=== PATIENT | female | born 1950 | race Caucasian/White ===

== ENCOUNTER 2017-05-09 08:13 | Observation (INO) ==
--- NOTE | 2017-05-09 08:53 | EKG Report ---
Test Performed on : 05/09/2017 08:22:47 AM Test Reason : stroke-like symptoms Blood Pressure : / mmHG Vent. Rate : 092 BPM Atrial Rate : 092 BPM P-R Int : 206 ms QRS Dur : 072 ms QT Int : 370 ms P-R-T Axes : 022 -05 051 degrees QTc Int : 457 ms Normal sinus rhythm. Low voltage QRS Borderline ECG When compared with ECG of 27-MAR-2014 11:57, Questionable change in QRS axis Unconfirmed Result
[2017-05-09 09:01] LABS: MANUAL DIFF NEEDED? NO
--- NOTE | 2017-05-09 09:09 | Diag Imaging Result Doc PS360 ---
CHEST-PORTABLE - 05/09/2017 INDICATION: stroke like symptoms TECHNIQUE: COMPARISON: None FINDINGS: There is some trace linear atelectasis at the left lung base. No focal infiltrates, pneumothorax, or pleural effusion. Heart size and pulmonary vascularity is normal. IMPRESSION: No acute disease. Electronically signed by Fermin Gaines 05/09/2017 9:07 AM
[2017-05-09 09:11] LABS: BASO% 0.6 % (0.0-0.8); EOS# 0.14 X1000 (0.0-0.7); EOS% 2.2 % (0.0-10.0); HEMATOCRIT 40.4 % (37.0-47.0); HEMOGLOBIN 13.8 g/dL (12.0-16.0); IMM GRAN# 0.02 X1000 (0.0-0.04); IMM GRAN% 0.3 % (0.0-0.5); LYMPH# 1.88 X1000 (1.2-3.4); MCH 31.2 PG (27-31); MCHC 34.2 g/dL (33-37); MCV 91.2 FL (81-99); MONO# 0.71 X1000 (0.11-0.59); MPV 9.6 FL (7.4-10.4); NEUT% 56.9 % (42.2-75.2); PLT 239 X1000 (130-400); RBC 4.43 XMIL (4.2-5.4)
[2017-05-09 09:18] LABS: INR 1.08; PROTIME 11.4 Seconds (9.2-11.7); PTT 31.6 Seconds (22.0-36.0)
[2017-05-09] MEDS ORDERED: ATIVAN IV ONE (09:25)
[2017-05-09 09:27] LABS: AGAP 13; ALBUMIN 3.7 g/dL (3.5-5.0); ALKALINE PHOSPHATASE 151 U/L (32-104); BUN 22 mg/dL (8-22); CALCIUM 9.2 mg/dL (8.8-10.2); CHLORIDE 95 mmol/L (98-107); COSMO 292; GOT 16 U/L (10-30); GPT 23 U/L (10-36); POTASSIUM 4.2 mmol/L (3.5-5.1); SODIUM 136 mmol/L (136-145); TCO2 28 mmol/L (25-35); TOTAL BILIRUBIN 0.68 mg/dL (0.20-1.00); TOTAL PROTEIN 6.8 g/dL (6.3-8.3)
[2017-05-09 09:47] LABS: URINE SOURCE CLEAN CATCH
--- NOTE | 2017-05-09 09:53 | Diag Imaging Result Doc PS360 ---
EXAM: CT HEAD W/O CONTRAST HISTORY: words got garbled TECHNIQUE: CT brain without contrast. Dose reduction protocol. COMPARISON: None. FINDINGS: No parenchymal hemorrhage. No epidural or subdural hematoma. No subarachnoid hemorrhage. No mass identified on this noncontrasted exam. No hydrocephalus. Mild chronic microvascular ischemic changes. No sinus opacification. IMPRESSION: No hemorrhage. Mild chronic microvascular ischemic changes. An MRI may be beneficial. Electronically signed by Cornelius Decker 05/09/2017 9:51 AM
[2017-05-09] MEDS ORDERED: NS 1,000 ML IV ONE (09:55)
[2017-05-09 10:25] LABS: UR AMPHETAMINES QUAL NONE DETECTED (NONE DETECT); UR BARBITUATES QUAL NONE DETECTED (NONE DETECT); UR BENZODIAZEPIN QUAL NONE DETECTED (NONE DETECT); UR CANNABINOIDS QUAL NONE DETECTED (NONE DETECT); UR COCAINE QUAL NONE DETECTED (NONE DETECT); UR METHADONE QUAL NONE DETECTED (NONE DETECT); UR OPIATES QUAL NONE DETECTED (NONE DETECT); UR OXYCODONE QUAL NONE DETECTED (NONE DETECT); UR PCP QUAL NONE DETECTED (NONE DETECT)
--- NOTE | 2017-05-09 11:23 | Diag Imaging Result Doc PS360 ---
EXAM: MRI BRAIN W W/O CONTRAST HISTORY: stroke like symptoms TECHNIQUE: Axial, sagittal, and coronal images obtained in multiple sequences. These are followed the post contrasted axial and coronal images. COMPARISON: Recent head CT FINDINGS: No recent infarct. There are small areas of increased signal on T2 and FLAIR weighted images in the frontal and parietal lobes believed to be mild microvascular ischemic changes. No mass or midline shift. No enhancing lesion on the post contrasted images. No hydrocephalus. Normal orbits. No epidural or subdural fluid collection. No sinus opacification. IMPRESSION: Mild microvascular ischemic changes, but no recent infarct. Electronically signed by Cornelius Decker 05/09/2017 11:20 AM
[2017-05-09 11:28] LABS: BILIRUBIN URINE NEGATIVE (NEGATIVE); BLOOD URINE NEGATIVE (NEGATIVE); COLOR YELLOW; GLUCOSE URINE >1000 mg/dL (NEGATIVE); LEUKOCYTES URINE LARGE (NEGATIVE); NITRITE URINE NEGATIVE (NEGATIVE); PH URINE 6.5; PROTEIN URINE TRACE mg/dL (NEGATIVE); SP GRAVITY URINE 1.031; TURBIDITY URINE HAZY (CLEAR); UROBILINOGEN URINE NORMAL (NORMAL)
[2017-05-09 11:36] LABS: URINE MICRO REVIEW NEEDED? YES
[2017-05-09 11:52] LABS: UR EPITHELIAL CELLS <10 /HPF (<10); URINE BACTERIA 2+ /HPF; URINE CULTURE NEEDED? YES; URINE RBC <10 /HPF (<10); URINE WBC TNTC /HPF (<10)
[2017-05-09 11:53] LABS: URINE CASTS NONE SEEN; URINE CRYSTALS NONE SEEN; URINE SMALL ROUND CELLS NONE SEEN
[2017-05-09] MEDS: HUMALOG SUBQ SCH ×9 (14:50→21:39)
[2017-05-09] MEDS: LEVAQUIN PO SCH (15:25)
[2017-05-09] MEDS: NS 1,000 ML IV SCH ×2 (15:35→15:40)
--- NOTE | 2017-05-09 15:35 | HISTORY AND PHYSICAL ---
PRIMARY CARE PHYSICIAN: Dr. Al Beck. CHIEF COMPLAINT: Dysphagia and weakness. HISTORY OF PRESENT ILLNESS: Ms. Alvarado is a 66-year-old female with a history of uncontrolled diabetes mellitus, hypertension, previous strokes in the past, who presents with dysphagia and confusion that initially began on Tuesday. She reports that she had a Tdap shot on Tuesday, Tuesday she was in bed all day with chills and general malaise. Symptoms continued into Tuesday. However, this morning she woke up and she had expressive aphasia and mild confusion as reported by her family. She came to the ER for evaluation and had a head CT done. This did not show anything acute microvascular changes were noted. Her only significant lab data was hyperglycemia. We did order an MRI which was negative for any acute processes. Her symptoms have since resolved. She has no extremity weakness. She has not had any loss of consciousness or visual changes. No numbness or tingling. She denies any chest pain or shortness of breath. No nausea, vomiting or diarrhea. She is now going to be admitted for observation status. PAST MEDICAL HISTORY: 1. Diabetes mellitus, compliant with her medications, but she does not check her blood sugar. 2. Strokes in the past. She did have some mild right visual defects, but those have since resolved. 3. Hypertension. 4. Hyperlipidemia. 5. Anxiety. SURGICAL HISTORY: Tubal ligation. Hysterectomy. Kyphoplasty. SOCIAL HISTORY: She denies tobacco, alcohol or drug use. She is . Family is at the bedside. FAMILY HISTORY: Father from the complications from leukemia. Mother had heart attack. REVIEW OF SYSTEMS: Fourteen-point review of systems obtained and found to be negative with the exception of the HPI. ALLERGIES: Cefuroxime. Lisinopril. Phenazopyridine. Latex. Bactrim. Shellfish. Erythromycin. HOME MEDICATIONS: Hyzaar 100/12.5 one daily. Humalog insulin 15 units subcutaneous t.i.d. Lantus 45 units subcutaneous a.m. Aspirin 325 mg daily. PHYSICAL EXAMINATION: VITAL SIGNS: Blood pressure is 141/82, heart rate 76. Respiratory rate is 20. O2 saturation 99% on room air. Temperature is 97.9 degrees. GENERAL: This is an overweight, female, lying in hospital bed in no acute distress. NEUROLOGIC: The patient is awake, alert and oriented. She follows commands without focal deficits. HEENT: Head is atraumatic, normocephalic. Her pupils are equal, round, and reactive to light. Oral mucosa is moist. Trachea is midline. There is no JVD or carotid bruits. CHEST: Clear to auscultation bilaterally. CARDIOVASCULAR: Regular rate and rhythm. S1-S2 is noted. No murmurs. GI: Soft, nondistended, nontender. Bowel sounds positive. EXTREMITIES: No edema, clubbing or cyanosis. Pulses palpable bilaterally. DIAGNOSTIC DATA: Head CT: Chronic changes. MRI of the brain: Chronic changes. Nothing acute. Chest x-ray is negative. EKG: Sinus rhythm with nonspecific ST and T abnormalities. LABORATORY DATA: WBC 6.48, hemoglobin 13.8, hematocrit 40.4, platelet count 239 ,000. INR 1.08. Sodium 136, potassium 4.2, chloride 95, CO2 28, anion gap 13, BUN 22, creatinine 0.7, glucose is 392, calcium 9.2, T bilirubin 0.68. AST 16, ALT 23, alkaline phosphatase 151, troponin negative. Albumin 3.7. UA shows greater than 1000 glucose, and likely urinary tract infection. Toxicology is negative. ASSESSMENT AND PLAN: 1. Expressive aphasia/stroke-like symptoms: Symptoms have resolved so transient ischemic attack likely. However, would not rule out adverse effects of a Tdap shot given Tuesday; however, unlikely. I will admit her for observation status. Do neurologic checks every 4 hours. Make sure she is on aspirin and statin, allow for permissive hypertension and treat underlying urinary tract infection. 2. Urinary tract infection: By mouth Levaquin has been added. 3. Hyperglycemia with uncontrolled diabetes: Patient reports taking her insulin as directed, but denies checking her blood sugar regularly. We have instructed her on the importance of strict glucose control, as well as diet and exercise. 4. Hypertension: We are holding her Hyzaar for now. We will start back tomorrow morning. 5. Hyperlipidemia: Lipid panel and hemoglobin A1c have been ordered for the morning. We will make sure she is on high intensity statin. 6. Medical noncompliance: We have discussed with the patient the importance of complying with her medication regimen, diet and exercise, she verbalizes understanding. 7. Deep venous thrombosis prophylaxis is provided with Lovenox. Further recommendations to follow. Dictated by ADAN Olmos for Topher Bueno MD cc: ADAN Olmos MD Stephen A. Branning, MD MTDD
--- NOTE | 2017-05-09 17:16 | ECHO REPORT ---
ORDER DATE: 05/09/2017 ECHOCARDIOGRAPHIC MEASUREMENTS: 1. Interventricular septum 0.8. Left ventricular posterior wall 0.8. Diastolic diameter 5.0. Left atrium 3.7. Aorta 3.1. Normal left ventricular cavity size. Estimated ejection fraction of 60%. Technically suboptimal study. Poor acoustic window. Mitral valve was normal. Tricuspid valve was normal. Aortic valve leaflets trileaflet. 2. There is mild mitral regurgitation. Mild tricuspid regurgitation. Peak velocity across the tricuspid valve was 2.8 m/sec. Pulmonary artery systolic pressure 41 mmHg. 3. There is no aortic stenosis or regurgitation. 4. Anterior echo-free space suggestive of pericardial fat pad noted. There is no pericardial effusion. cc: MD Harry Rivera CRNP
[2017-05-09] MEDS ORDERED: LIPITOR PO SCH (21:00)
[2017-05-10] MEDS: NS 1,000 ML IV SCH (04:30)
[2017-05-10] MEDS: HUMALOG SUBQ SCH (06:18)
[2017-05-10 06:52] LABS: HEMATOCRIT 35.6 % (37.0-47.0); HEMOGLOBIN 12.1 g/dL (12.0-16.0); MCH 31.7 PG (27-31); MCV 93.2 FL (81-99); MPV 9.6 FL (7.4-10.4); RBC 3.82 XMIL (4.2-5.4)
[2017-05-10 07:07] LABS: HEMOGLOBIN A1C 12.2 % (4.8-6.0)
[2017-05-10 07:18] LABS: AGAP 12; BUN 18 mg/dL (8-22); CALCIUM 8.4 mg/dL (8.8-10.2); CHLORIDE 101 mmol/L (98-107); COSMO 293; MAGNESIUM 1.8 mg/dL (1.5-2.7); POTASSIUM 4.3 mmol/L (3.5-5.1); SODIUM 140 mmol/L (136-145); TCO2 27 mmol/L (25-35)
[2017-05-10 08:17] VITALS: BP 130/76
[2017-05-10] MEDS ORDERED: LANTUS SUBQ SCH ×2 (09:00)
[2017-05-10] MEDS ORDERED: ASPIRIN EC PO SCH (09:00)
[2017-05-10] MEDS ORDERED: LOVENOX SUBQ SCH (09:00)
[2017-05-10] MEDS: LEVAQUIN PO SCH (09:13)
[2017-05-10] MEDS ORDERED: INSULIN PEN NEEDLES ONE (09:21)
--- NOTE | 2017-05-10 17:12 | DISCHARGE SUMMARY ---
ADMISSION DATE: 05/09/2017 DISCHARGE DATE: 05/10/2017 CONSULTATIONS: None. PERTINENT PROCEDURES: 1. Head CT showed no hemorrhage, mild chronic microvascular ischemic changes. 2. Brain MRI showed mild microvascular ischemic changes, but no recent infarct. 3. Echocardiogram showed an EF of 60%. 4. Chest x-ray showed no acute disease. DISCHARGE DIAGNOSES: 1. Expressive aphasia, stroke-like symptoms. Her symptoms have completely resolved. Head CT, brain MRI, and echo are all negative. Patient will continue with aspirin and statin, and educated on medical compliance. 2. Urinary tract infection. Patient will continue on p.o. Levaquin. 3. Hypercholesterolemia with uncontrolled diabetes. The patient reported taking her insulin as directed, but denies checking her blood sugars regularly. She has been again educated on the importance of strict blood glucose control as well as diet and exercise. 4. Hypertension. Continue with home medications. 5. Hyperlipidemia. Continue statin. 6. Medical noncompliance. Again, patient is educated on the importance of complying with her medication regimen, diet and exercise. HOSPITAL COURSE: Ms. Alvarado is a 66-year-old female, with history of uncontrolled diabetes mellitus, hypertension, and previous strokes in the past, who presented with dysphagia and confusion that initially began on Tuesday. She reports she had a Tdap shot on Tuesday and Tuesday she was in bed all day with chills and general malaise. Symptoms continued Tuesday; however, on Tuesday morning she woke up and had excess expressive aphasia and mild confusion reported by family. She came to the ED for evaluation. Had a head CT done that did not show anything acute. Mild microvascular changes were noted. Her early significant laboratory data was hyperglycemia. MRI was noted to be negative for any acute process. Her symptoms had since resolved. She had no extremity weakness, no loss consciousness or visual changes. No numbness or tingling. Her urinalysis had too numerous to count WBCs. The patient was admitted in observation status with neuro checks. Started on aspirin and statin, and allowed for permissive hypertension. Treated her underlying UTI with Levaquin. Educated her on taking her insulin as directed and checking her blood sugars regularly as well as importance of strict diet and exercise, and medical compliance with all medications. The patient has remained stable. Head CT and brain MRI were both negative. Echocardiogram was negative. She is being discharged home by Dr. Rosas today. VITAL SIGNS: Temperature is 97.6 degrees, heart rate 78, respirations 19, blood pressure 130/76, O2 is 99% on room air. DISCHARGE DIET: Diabetic. DISCHARGE MEDICATIONS: 1. Aspirin 325 mg p.o. daily. 2. Atorvastatin 40 mg p.o. at bedtime. 3. Lantus 60 units subcutaneous q.a.m. 4. Humalog 15 units subcutaneously t.i.d. 5. Levaquin 500 mg p.o. daily for 5 days. 6. Hyzaar 100/12.5, 1 each p.o. at bedtime. FOLLOWUP: Ms. Alvarado is being discharged back home. She will follow up with her primary care physician, Al Beck, in 1 week. She will return to the ED for any worsening of symptoms. Again she has been educated on the importance of medical compliance. She indicates verbal understanding. She will return to the ED for any worsening of symptoms. Dictated by ADAN Phillips for Topher Bueno MD cc: Al Beck MD
--- NOTE | 2017-05-11 11:23 | PROVIDER DOCUMENTATION ---
This chart was entered by Kamran Brennan Scribe, acting as scribe for Julian Herndon MD. HPI-Neurological Disorder - General Chief Complaint: Stroke-Like Symptoms Stated Complaint: stroke like sx Time Seen by Provider: 05/09/17 08:58 Source: patient Allergies/Adverse Reactions: Patient Allergies Allergy/AdvReac Type Severity Reaction Status Date / Time cefuroxime axetil * Allergy Severe ANAPHYLAXIS Verified 05/09/17 08:43 [From Ceftin] lisinopril Allergy Severe ANAPHYLAXIS Verified 05/09/17 08:43 phenazopyridine HCl * Allergy Severe ANAPHYLAXIS Verified 05/09/17 08:43 [From Pyridium] latex Allergy Intermediate ITCHING Verified 05/09/17 08:43 erythromycin lactobionate * AdvReac NAUSEA Verified 05/09/17 08:43 [From Erythrocin] shellfish derived AdvReac NAUSEA/VOMI Verified 05/09/17 08:43 TING sulfamethoxazole AdvReac NAUSEA Verified 05/09/17 08:43 [From Bactrim] trimethoprim [From Bactrim] AdvReac NAUSEA Verified 05/09/17 08:43 Home Medications: Home Medication List Medication Instructions Recorded Confirmed Last Taken Type Insulin Glargine [Lantus] 45 units SQ QAM 02/19/14 05/09/17 03/28/14 08:30 History Insulin Lispro [Humalog] 15 units SQ TID 02/19/14 05/09/17 03/28/14 08:30 History Losartan/Hydrochlorothiazide 1 each PO DAILY 03/27/14 05/09/17 05/09/17 08:00 History [Hyzaar 100-12.5 Tablet] Aspirin [Aspirin EC] 325 mg PO DAILY 05/09/17 05/09/17 05/09/17 08:00 History - History of Present Illness-Neuro Nature of Presenting Problem: patient is a 66 y/o F that presents to the ER after having a one to two sentence episode of speech being garbled. Patient had no weakness to any side. patient has history of CVA. patient is emotional due to daughter about to give . She also received the Pertussis vaccine. She has no symptoms as of now. Severity: reports: mild Onset/Duration: reports: abrupt, this morning (714) Timing: reports: gone now Context: reports: impaired speech, other (emotional stress). denies: paresthesia, facial droop, seizure activity Character of Altered Mental Status: reports: N/A Any recent trauma/injury?: reports: none Character of Deficits: reports: impaired swallowing. denies: altered sensation , vision problem/glaucoma, impaired speech, decreased ability to stand, decreased ability to walk New weakness or altered sensation location:: reports: none Cognitive Baseline: alert, oriented x3 Gait Baseline: walks without assistance Associated Symptoms: reports: slurred speech. denies: headache, dizziness, chest pain, neck/back pain, fever/chills, loss of consciousness, muscle spasms, nausea, seizures, vomiting, vision changes Similar Symptoms Previously?: No Recently seen or treated by another doctor?: No Review of Systems - Adult - REVIEW OF SYSTEMS - ADULT Constitutional: reports: fatique. denies: chills, fever Eyes: reports: no symptoms reported Ears, Nose, Mouth & Throat: reports: throat pain. denies: ear discharge, ear pain, sinus problem, throat swelling Cardiovascular: denies: chest pain, palpitations, syncope Respiratory: denies: cough, shortness of breath, wheezing Gastrointestinal: denies: abdominal pain, diarrhea, nausea, vomiting Genitourinary: denies: dysuria, frequency, hematuria, urgency Musculoskeletal: reports: muscle weakness. denies: back pain, joint pain, neck pain Integumentary: reports: no symptoms reported Neurological: reports: slurred speech. denies: dizziness/vertigo, loss of balance, numbness, paresthesia Psychiatric: reports: no symptoms reported Endocrine: reports: no symptoms reported Hematologic/Lymphatic: reports: no symptoms reported Allergic/Immunologic: reports: no symptoms reported All Other Systems: Reviewed and Negative Past History - Adult - PAST MEDICAL HISTORY-ADULT Review of Records: reports: Old Records Reviewed, Nursing Assessment Review, Medications Reviewed Genitourinary: reports: kidney stones Neurological: reports: CVA Psychiatric: reports: anxiety Endocrine/Immune: reports: Diabetes - PRIOR SURGERIES/PROCEDURES Surgical/Procedure History: reports: hysterectomy, BTL, other (turp) - IMMUNIZATION STATUS Childhood Immunizations: See Nurse Assessment Flu Vaccine: See Nurse Assessment - FAMILY HISTORY Family History: reviewed, not pertinent - SOCIAL HISTORY Smoking: non-smoker Substance Use: none/never Alcohol Use Frequency: never Living Situation: family Physical Exam- Neurological - Physical Exam-Neuro Initial Vital Signs Reviewed: Yes General Appearance: alert, no apparent distress, anxious Eye Exam: bilateral eye: normal inspection, PERRL HENMT: normocephalic/atraumatic, moist mucous membranes, normal ENT inspection Head Injury: no evidence of injury Neck: non-tender, full range of motion, normal inspection Respiratory: lungs clear, normal breath sounds, no respiratory distress, no accessory muscle use Cardiovascular: regular rate, rhythm, no edema, no murmur Abdominal Exam: normal bowel sounds, non tender, soft, no organomegaly, no pulsatile mass Extremity: normal range of motion, normal inspection, no pedal edema, 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 negative: abnormal speech, facial asymmetry, facial droop, facial paresthesias, facial weakness, gaze palsy Coordination/Gait: normal finger to nose, negative Romberg's sign Motor/Sensory: no motor deficit, no sensory deficit, no pronator drift, negative Babinski's sign Neurologic: fire sprinkler service technician II-XII nml as tested, no motor/sensory deficits. negative: aphasia, EOM palsy, facial droop, focal weakness, motor weakness, sensory deficit Integumentary: normal color, normal turgor, warm/dry Psych/Mental Status: normal thought process, oriented x 3, anxious - Glascow Coma Scale Best Eye Response: (4) open spontaneously Best Verbal Response: (5) oriented Best Motor Response: (6) obeys commands Total Glascow Score: 15 Progress - PLAN OF CARE/RESULTS Progress/Plan/Lab Results: Vital Signs - 8 hr 05/09/17 08:18 05/09/17 09:00 Temperature 97.9 F Pulse Rate 100 H 81 Respiratory Rate 18 14 Blood Pressure 184/89 167/91 O2 Sat by Pulse Oximetry 100 98 Laboratory Results - last 24 hr 05/09/17 05/09/17 05/09/17 08:26 08:41 08:41 WBC 6.48 RBC 4.43 Hgb 13.8 Hct 40.4 MCV 91.2 MCH 31.2 H MCHC 34.2 RDW Std Deviation 12.8 Plt Count 239 MPV 9.6 Immature Gran % (Auto) 0.3 Neut % (Auto) 56.9 Lymph % (Auto) 29.0 Eagle % (Auto) 11.0 H Eos % (Auto) 2.2 Baso % (Auto) 0.6 Immature Gran # (Auto) 0.02 Neut # (Auto) 3.69 Lymph # (Auto) 1.88 Eagle # (Auto) 0.71 H Eos # (Auto) 0.14 Baso # (Auto) 0.04 PT INR PTT (Actin FS) Sodium 136 Potassium 4.2 Chloride 95 L Carbon Dioxide 28 Anion Gap 13 BUN 22 Creatinine 0.7 Estimated GFR/1.73 m2 > 60 BUN/Creatinine Ratio 31 Glucose 392 H POC Glucose 358 H Calculated Osmolality 292 Calcium 9.2 Total Bilirubin 0.68 AST 16 ALT 23 Alkaline Phosphatase 151 H Troponin T Total Protein 6.8 Albumin 3.7 Globulin 3.1 Albumin/Globulin Ratio 1.2 Urine Source 05/09/17 05/09/17 05/09/17 08:41 08:41 09:39 WBC RBC Hgb Hct MCV MCH MCHC RDW Std Deviation Plt Count MPV Immature Gran % (Auto) Neut % (Auto) Lymph % (Auto) Eagle % (Auto) Eos % (Auto) Baso % (Auto) Immature Gran # (Auto) Neut # (Auto) Lymph # (Auto) Eagle # (Auto) Eos # (Auto) Baso # (Auto) PT 11.4 INR 1.08 PTT (Actin FS) 31.6 Sodium Potassium Chloride Carbon Dioxide Anion Gap BUN Creatinine Estimated GFR/1.73 m2 BUN/Creatinine Ratio Glucose POC Glucose Calculated Osmolality Calcium Total Bilirubin AST ALT Alkaline Phosphatase Troponin T < 0.010 Total Protein Albumin Globulin Albumin/Globulin Ratio Urine Source CLEAN CATCH Orders Category Date Time Status Cardiac Monitoring DIRECTED Care 05/09/17 08:51 Active Finger Stick Blood Sugar (ED) DIRECTED Care 05/09/17 08:51 Active Saline Loc NOW Care 05/09/17 08:51 Active CHEST-PORTABLE [RAD] Stat Exams 05/09/17 08:[address] HEAD W/O CONTRAST [CT] Stat Exams 05/09/17 09:18 Completed CBC WITH ELECTRONIC DIFF [HEME] Stat Lab 05/09/17 08:41 Completed COMPREHENSIVE METABOLIC PANEL [CHEM] Stat Lab 05/09/17 08:41 Completed PROTIME WITH INR [COAG] Stat Lab 05/09/17 08:41 Completed PTT [COAG] Stat Lab 05/09/17 08:41 Completed TROPONIN T Stat Lab 05/09/17 08:41 Completed URINALYSIS W/POSS RFLX CULT-1 [URINALYSIS] Stat Lab 05/09/17 09:39 Results URINE DRUG SCREEN Stat Lab 05/09/17 09:39 Received 0.9% Sodium Chloride Inj [Ns] 1,000 ml Med 05/09/17 09:55 Active IV 999 mls/hr Lorazepam [Ativan] Med 05/09/17 09:25 Discontinued 1 mg IV NOW ONE EKG [EKG] Stat Ther 05/09/17 08:22 Draft Result Diagrams: 05/09/17 08:41 05/09/17 08:41 - EKG 1 Time of EKG reading by physician:: : EKG Read and Signed by:: Julian Herndon EKG Interpretation (*Must complete 3 of following elements*): Abnormal Rate: 92 Rhythm: NSR [place]: normal QRS: other (low voltage) [place] Interval: normal ST Wave: normal - XRAY 1 XRAY Study: Chest Impression: Normal XRAY Interpretation: nad - CT/MRI 1 CT Study: Head Impression: Abnormal CT Results: no bleed, microvascular changes - CONSULTS/PCP/HOSPITALIST Notification #1 *Consult/PCP/Hospitalist*: German ARELLANO with Hospitalist Time Discussed: 10:04 Reason/Comments: accepted to service Departure - Departure Date of Disposition Decision: 05/09/17 Time of Disposition Decision: 10:04 DIAGNOSIS: TIA (transient ischemic attack) Disposition: ADMITTED INPATIENT 09 Certified Medical Emergency: Emergent Condition: Stable Referrals and Follow-Ups: Al Beck MD [Primary Care Provider] - - Critical Care Note This patient required my direct & personal management of CC.: No Attestation - Physician/ SUNNY Attestation The physician spent face to face time with patient:: Yes Advanced Practice Provider documentation review:: Supervising physician onsite and consulted in the evaluation and care of this patient. The physician did have a face to face encounter with the patient. - NIH Stroke Scale NIH Type: Initial Evaluation Level of Consciousness: 0-Alert LOC Questions (ask month and age): 0-Answers Both Correctly LOC Commands (ask to open & close eyes;make a fist, let go): 0-Obeys Both Correctly Best Gaze (horizontal eye movement): 0-Normal Visual (use finger movement, counting or visual threat): 0-No Visual Loss Facial Palsy (show teeth or raise eyebrows & close eyes tght: 0-Symmetrical Movement Motor Function-left arm: 0-Normal Motor Function-right arm: 0-Normal Motor Function-left le-Normal Motor Function-right le-Normal Limb Ataxia(nbtoue-unrz-wnnexj, or heel to hoyt): 0-No Ataxia Sensory(pin prick to face,arms,trunk,legs-compare side/side): 0-No Ataxia Best Language(name item/read sentence.Ex-Down to Earth): 0-No Aphasia Dysarthria(Pt read words or say words Ex.Mama,Tip-Top,Thanks: 0-Normal Articulation Extinction and Inattention: 0-Normal NIH Total Score: 0 Modified [place] Score Criteria: 0-no symptoms Stroke tPA Guidelines - Inclusion Criteria for IV tPA 18 years old or older: Yes Ischemic stroke with measurable deficit: No Onset <3 hours ago *OR* 3-4.5 hours ago: Yes - Exclusion Criteria for IV tPA Evidence of intracranial hemorrhage on CT: No Presentation suggest SAH: No CT reveals defined area of hypodensity: No Evidence of AVM, neoplasm, aneurysm: No Seizure at stroke onset: No Active internal bleeding or acute trauma: No Platelet Count Less Than 100,000: No Heparin Within Last 48 HRS (PTT >Lab normal limits): No INR > 1.7 (warfarin use): No Use IIB/IIIA inhibitors within 24 hours: No Serious Head Trauma Within Last 3 Months: No Arterial Puncture Within Last 7 Days: No Lumbar Puncture Within Last 7 Days: No Repeated systolic Blood Pressure >185 or Diastolic >110: No - Additional Exclusion Criteria for IV tPA Currently on Coumadin: No Patient older than 80: No Prior stroke and diabetes: No Baseline NIHSS score > 25: No - Relative Contraindications to IV tPA CT reveals extensive area of infarct (>1/3 MCA territory): No Minor or rapidly improving stroke symptoms: Yes Major Surgery or Serious Trauma In Previous 14 Days: No AMI within 3 months: No Gastrointestinal or Urinary Tract hemorrhage in Past 21 Days: No Post - AMI pericarditis: No Blood Glucose Less Than 50 mg/dl or Greater Than 400 mg/dl: No - Consultation Candidate for:: NOT A CANDIDATE This chart was documented by the indicated scribe, (BrennanKamran Scribe) and accurately reflects the services I performed and decisions made by me, Julian Herndon MD, as attested by the provider's signature.
== END 2017-05-10 10:13 | disposition home or self-care (01) ==
LOC: ED 08:13 → EDIPHOLD 08:13 → SUATTDRO 11:45 → 3N 12:25
PROVIDERS: ATTEND Internal Medicine